=== PATIENT | male | born 1970 | race Caucasian/White ===

== ENCOUNTER 2018-12-09 17:37 | Inpatient (IN) | payer OTHER ==
[2018-12-09 19:14] VITALS: BMI 23.6
--- NOTE | 2018-12-09 21:39 | HP ---
CIWA Score Nausea/Vomitin-No Nausea/No Vomiting Muscle Tremors: 3 Anxiety: 3 Agitation: 3 Paroxysmal Sweats: 2 Orientation: 2-Disoriented Date<2 days Tacttile Disturbances: 2-Mild Itch/Numbness/Burn (both of feet numbness) Auditory Disturbances: 0-None Visual Disturbances: 0-None Headache: 0-None Present CIWA-Ar Total Score: 15 - Admission Criteria OASAS Guidelines: Admission for Medically Managed Detox: Requires at least one of the followin. CIWA greater than 12 2. Seizures within the past 24 hours 3. Delirium tremens within the past 24 hours 4. Hallucinations within the past 24 hours 5. Acute intervention needed for co occurring medical disorder 6. Acute intervention needed for co occurring psychiatric disorder 7. Severe withdrawal that cannot be handled at a lower level of care (continued vomiting, continued diarrhea, abnormal vital signs) requiring intravenous medication and/or fluids 8. Patient presents the following: CIWA greater than 12 Admission Criteria Met: Admission criteria met Admission ROS S - [facility] Chief Complaint: " alcohol detox, I shake when I don't drink very bad" Allergies/Adverse Reactions: Allergies Allergy/AdvReac Type Severity Reaction Status Date / Time No Known Allergies Allergy Verified 12/09/18 21:39 History of Present Illness: 48 yo male, homeless, nicotine and alcohol dependence is here seeking alcohol detox. Last detox October left AMA. LCS MMTP on methadone maintenance 120 mg, last medicated today, dose pending verification. Patient reports the medical conditions: seizure , depression, anxiety, bipolar, schizophrenia. Reports seizure four months ago when attempted detox. Denies suicidal / homicidal or hx of suicide attempts. Reports no significant period of sobriety. Exam Limitations: No Limitations - Ebola screening Have you traveled outside of the country in the last 21 days: No (N) Have you had contact with anyone from an Ebola affected area: No Have you been sick,other than usual withdrawal symptoms: No Do you have a fever: No - Review of Systems Constitutional: Diaphoresis, Changes in sleep, Other ("shakes") EENT: reports: No Symptoms Reported Respiratory: reports: No Symptoms reported Cardiac: reports: No Symptoms Reported GI: reports: Poor Fluid Intake, Indigestion : reports: Incontinence Musculoskeletal: reports: No Symptoms Reported Integumentary: reports: Dryness, Pruritus, Other (scar on forehead from old injury) Neuro: reports: See HPI, Numbness (both feet) Endocrine: reports: No Symptoms Reported, Increased Thirst Hematology: reports: No Symptoms Reported Psychiatric: reports: Orientated x3, Anxious Other Systems: Reviewed and Negative Patient History - Patient Medical History Hx Anemia: No Hx Asthma: No Hx Chronic Obstructive Pulmonary Disease (COPD): No Hx Cancer: No Hx Cardiac Disorders: No Hx Congestive Heart Failure: No Hx Hypertension: No Hx Hypercholesterolemia: No Hx Pacemaker: No HX Cerebrovascular Accident: No Hx Seizures: No Hx Dementia: No Hx Diabetes: No Hx Gastrointestinal Disorders: No Hx Liver Disease: Yes ("Enlarge Liver") Hx Genitourinary Disorders: No Hx Sexually Transmitted Disorders: No Hx Renal Disease (ESRD): No Hx Human Immunodeficiency Virus (HIV): No Hx Hepatitis C: No Hx Depression: Yes Hx Suicide Attempt: No Hx Bipolar Disorder: Yes Hx Schizophrenia: Yes Other Medical History: TBI - Patient Surgical History Past Surgical History: No - PPD History Previous Implant?: No Documented Results: Negative w/o proof PPD to be Administered?: Yes - Smoking Cessation Smoking history: Current every day smoker Have you smoked in the past 12 months: Yes Aproximately how many cigarettes per day: 20 Hx Chewing Tobacco Use: No Initiated information on smoking cessation: Yes 'Breaking Loose' booklet given: 12/09/18 - Substance & Tx. History Hx Alcohol Use: Yes Substance Use Type: Alcohol Hx Substance Use Treatment: Yes ([facility] [place] A[facility]. ) - Substances Abused alcohol Route: Oral Frequency: Daily Amount used: 4 - 5 pints Age of first use: 11 Date of Last Use: 12/09/18 Family Disease History - Family Disease History Family Disease History: CA: Father (Prostate CA), Other: Mother (alcoholism ) Admission Physical Exam [facility] - Vital Signs Vital Signs: Vital Signs - 24 hr 12/09/18 19:09 Temperature 98 F Pulse Rate 72 Respiratory 18 Rate Blood Pressure 118/76 - Physical General Appearance: Yes: Disheveled, Mild Distress, Alcohol on Breath, Sweating , Anxious HEENTM: Yes: EOMI, Hearing grossly Normal, Normal ENT Inspection, Normocephalic , Normal Voice, CASSIDY, Pharynx Normal, Tm's normal Respiratory: Yes: Within Normal Limits Neck: Yes: Within Normal Limits Breast: Yes: Breast Exam Deferred Cardiology: Yes: Regular Rhythm, Regular Rate Abdominal: Yes: Normal Bowel Sounds, Non Tender, Flat, Soft Genitourinary: Yes: Within Normal Limits Back: Yes: Normal Inspection Musculoskeletal: Yes: Within Normal Limits Extremities: Yes: Normal Capillary Refill, Normal Inspection, Normal Range of Motion Neurological: Yes: baseball 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 - Detox or Rehab [facility] Level of Care: Medically Managed (Detox: [facility]) [facility] Breath Alcohol Content Breath Alcohol Content: 0.041 Urine Drug Screen - Results Drug Screen Negative: No Urine Drug Screen Results: MTD-Methadone Inpatient Rehab Admission - Rehab Decision to Admit Inpatient rehab admission?: No
[2018-12-09] MEDS ORDERED: MAGNESIUM CITRATE 300 ML BOTTLE PO PRN (21:57)
[2018-12-09] MEDS ORDERED: METHOCARBAMOL 500 MG TABLET PO PRN (21:57)
[2018-12-09] MEDS ORDERED: NICOTINE POLACRILEX 4 MG GUM BUC PRN (21:57)
[2018-12-09] MEDS ORDERED: hydrOXYzine PAMOATE 25 MG CAPSULE (FP) PO PRN (21:57)
[2018-12-09] MEDS ORDERED: ACETAMINOPHEN 325 MG TABLET (FP) PO PRN ×2 (21:57)
[2018-12-09] MEDS ORDERED: IBUPROFEN 400 MG TABLET (FP) PO PRN (21:57)
[2018-12-09] MEDS ORDERED: MELATONIN 5 MG TABLETS PO PRN (21:57)
[2018-12-09] MEDS ORDERED: BISMUTH SUBSALICYLATE 524 MG/30 ML UD PO PRN (21:57)
[2018-12-09] MEDS ORDERED: MAG HYDROX/AL HYDROX/SIMETH 30 ML UNIT-DOSE CUP PO PRN (21:57)
[2018-12-09] MEDS ORDERED: MAGNESIUM HYDROX 2400MG/30ML ORAL SUSPENSION 30 ML CUP PO PRN (21:57)
[2018-12-10] MEDS: LORazepam 1 MG TABLET PO PRN ×2 (01:29→08:24)
[2018-12-10] MEDS: LORazepam 2 MG TABLET PO SCH ×4 (01:34→17:39)
[2018-12-10] MEDS: THIAMINE HCL 100 MG TABLET (FP) PO SCH ×2 (01:34→22:12)
[2018-12-10] MEDS: NICOTINE 21 MG/24 HOURS TOPICAL PATCH TD SCH (10:11)
[2018-12-10] MEDS: PRENATAL VITAMINS W/ FOLIC ACID TABLET (FP) PO SCH (10:11)
[2018-12-10] MEDS ORDERED: METHADONE HCL 40 MG DISPERSABLE TABLET PO ONE (10:44)
[2018-12-10 11:29] LABS: HEMATOCRIT 39.2 % (35.4-49); HEMOGLOBIN 13.5 GM/dL (11.7-16.9); MCH 33.6 pg (25.7-33.7); MCHC 34.5 g/dl (32.0-35.9); MEAN CELL VOLUME 97.6 fl (80-96); MEAN PLT VOLUME 7.8 fl (7.5-11.1); PLATELET COUNT 197 K/MM3 (134-434); RBC 4.02 M/mm3 (4.00-5.60); RDW 15.1 % (11.9-15.9); WHITE BLOOD COUNT 4.1 K/mm3 (4.0-10.0)
[2018-12-10 11:30] LABS: URINE APPEARANCE CLEAR; URINE BILIRUBIN NEGATIVE (<2.0 mg/dL); URINE COLOR YELLOW; URINE GLUCOSE (UA) NEGATIVE (NEGATIVE); URINE KETONE NEGATIVE (NEGATIVE); URINE LEUK ESTERASE NEGATIVE (NEGATIVE); URINE NITRITE NEGATIVE (NEGATIVE); URINE PROTEIN NEGATIVE (NEGATIVE); URINE UROBILINOGEN 4.0 E.U/dl mg/dL (0.2-1.0)
[2018-12-10 11:37] LABS: ALBUMIN 3.1 g/dl (3.4-5.0); ALK PHOS 112 U/L (45-117); ANION GAP 5 MMOL/L (8-16); BILIRUBIN,TOTAL 0.3 mg/dL (0.2-1); BLOOD UREA NITROGEN 17 mg/dL (7-18); CALCIUM 8.3 mg/dL (8.5-10.1); CHLORIDE 105 mmol/L (98-107); CO2 30 mmol/L (21-32); CREATININE 0.9 mg/dL (0.55-1.3); GLUCOSE,RANDOM 95 mg/dL (74-106); POTASSIUM 3.8 mmol/L (3.5-5.1); SGOT/AST 21 U/L (15-37); SGPT/ALT 18 U/L (13-61); SODIUM 140 mmol/L (136-145); TOT PROT 6.7 g/dl (6.4-8.2)
[2018-12-10] MEDS ORDERED: PNEUMOC 13-VAL CONJ-DIP CRM/PF 0.5 ML DISP.SYRIN IM ONE (12:00)
[2018-12-10] MEDS ORDERED: PNEUMOCOCCAL 23 VACCINE 0.5 ML VIAL IM ONE (12:00)
--- NOTE | 2018-12-10 13:27 | PN ---
[facility] CIWA - CIWA Score Nausea/Vomitin-No Nausea/No Vomiting Muscle Tremors: 2 Anxiety: 2 Agitation: 3 Paroxysmal Sweats: 1-Minimal Palms Moist Orientation: 2-Disoriented Date<2 days Tacttile Disturbances: 0-None Auditory Disturbances: 0-None Visual Disturbances: 0-None Headache: 1-Very Mild CIWA-Ar Total Score: 11 S Progress Note (SOAP) Subjective: tremor sweating hesitate to talk about alcohol misuse had one dose methadone 120 mg reporting feeling better Objective: 12/10/18 13:26 Vital Signs Temperature 97.2 F L 12/10/18 09:18 Pulse Rate 73 12/10/18 09:18 Respiratory Rate 18 12/10/18 09:18 Blood Pressure 135/77 12/10/18 09:18 O2 Sat by Pulse Oximetry (%) Laboratory Last Values WBC 4.1 K/mm3 (4.0-10.0) 12/10/18 07:30 RBC 4.02 M/mm3 (4.00-5.60) 12/10/18 07:30 Hgb 13.5 GM/dL (11.7-16.9) 12/10/18 07:30 Hct 39.2 % (35.4-49) 12/10/18 07:30 MCV 97.6 fl (80-96) H 12/10/18 07:30 MCH 33.6 pg (25.7-33.7) 12/10/18 07:30 MCHC 34.5 g/dl (32.0-35.9) 12/10/18 07:30 RDW 15.1 % (11.9-15.9) 12/10/18 07:30 Plt Count 197 K/MM3 (134-434) 12/10/18 07:30 MPV 7.8 fl (7.5-11.1) 12/10/18 07:30 Sodium 140 mmol/L (136-145) 12/10/18 07:30 Potassium 3.8 mmol/L (3.5-5.1) 12/10/18 07:30 Chloride 105 mmol/L (98-107) 12/10/18 07:30 Carbon Dioxide 30 mmol/L (21-32) 12/10/18 07:30 Anion Gap 5 MMOL/L (8-16) L 12/10/18 07:30 BUN 17 mg/dL (7-18) 12/10/18 07:30 Creatinine 0.9 mg/dL (0.55-1.3) 12/10/18 07:30 Creat Clearance w eGFR 90.45 (>60) 12/10/18 07:30 Random Glucose 95 mg/dL (74-106) 12/10/18 07:30 Calcium 8.3 mg/dL (8.5-10.1) L 12/10/18 07:30 Total Bilirubin 0.3 mg/dL (0.2-1) 12/10/18 07:30 AST 21 U/L (15-37) 12/10/18 07:30 ALT 18 U/L (13-61) 12/10/18 07:30 Alkaline Phosphatase 112 U/L (45-117) 12/10/18 07:30 Total Protein 6.7 g/dl (6.4-8.2) 12/10/18 07:30 Albumin 3.1 g/dl (3.4-5.0) L 12/10/18 07:30 Urine Color Yellow 12/10/18 10:20 Urine Appearance Clear 12/10/18 10:20 Urine pH 6.0 (5.0-8.0) 12/10/18 10:20 Ur Specific [place] 1.021 (1.010-1.035) 12/10/18 10:20 Urine Protein Negative (NEGATIVE) 12/10/18 10:20 Urine Glucose (UA) Negative (NEGATIVE) 12/10/18 10:20 Urine Ketones Negative (NEGATIVE) 12/10/18 10:20 Urine Blood Negative (NEGATIVE) 12/10/18 10:20 Urine Nitrite Negative (NEGATIVE) 12/10/18 10:20 Urine Bilirubin Negative (<2.0 mg/dL) 12/10/18 10:20 Urine Urobilinogen 4.0 e.u/dl mg/dL (0.2-1.0) 12/10/18 10:20 Ur Leukocyte Esterase Negative (NEGATIVE) 12/10/18 10:20 RPR Titer Nonreactive (NONREACTIVE) 12/10/18 07:30 lab noted Assessment: 12/10/18 13:26 withdrawal sx Plan: continue detox
--- NOTE | 2018-12-10 13:38 | CONSULT ---
[facility] Psychiatric Consult - Data Date of interview: 12/10/18 Admission source: [facility] Identifying data: First admission to [facility] for this 48 y/o [place] male self-referred for detoxification (heroin, alcohol, cannabis). Interviewed on . Patient is , a father of 12, homeless, unemployed and supported on food stamps. Substance Abuse History: Substance abuse confirmed by the patient in this interview. Kalyn patterson [facility] report for details : Smoking history: Current every day smoker. Have you smoked in the past 12 months: Yes. Aproximately how many cigarettes per day: 20. Hx Chewing Tobacco Use: No. Initiated information on smoking cessation: Yes. 'Breaking Loose' booklet given: . - Substance & Tx. History. Hx Alcohol Use: Yes. Substance Use Type: Alcohol. Hx Substance Use Treatment: Yes (ast detox [place]. ) . - Substances Abused. alcohol. Route: Oral. Frequency: Daily. Amount used: 4 - 5 pints. Age of first use: 11. Date of Last Use: 12/09/18 Medical History: Diabetes mellitus. Psychiatric History: Patient endorses a history of multiple psychiatric hospitalizations (names of institutions not recalled). Reportedly diagnosed with "" Bipolar Disorder and Schizophrenia ". Mr Kitchen states that he used to be prescribed psychotropic medications. No able to recall the names of the formulations. " I used to get them when I was in snf. I stoppped taking them since I got released last year on 06/10/18 after 10 years ". 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 No psychiatric [facility] care prior to this [facility] visit. Patient denies history of suicide attempts. Reports current methadone maintenance (120 mg/day) at the [facility] program in [facility]. Physical/Sexual Abuse/Trauma History: Trauma : 10 consecutive years in snf. Additional Comment: Urine Drug Screen Results: MTD-Methadone. Noted. Mental Status Exam - Mental Status Exam Alert and Oriented to: Time, Place, Person Cognitive Function: Grossly Intact Patient Appearance: Well Groomed (short stature) Mood: Nervous, Withdrawn Affect: Mood Congruent, Constricted Patient Behavior: Fatigued, Cooperative Speech Pattern: Delayed, Slurred Voice Loudness: Normal Thought Process: Goal Oriented Thought Disorder: Not Present Hallucinations: Denies Suicidal Ideation: Denies Homicidal Ideation: Denies Insight/Judgement: Poor Sleep: Well Appetite: Good Muscle strength/Tone: Normal Gait/Station: Normal Psychiatric Findings - Problem List ([place] 1, 2,3) (1) Alcohol dependence with uncomplicated withdrawal Current Visit: Yes Status: Acute (2) Opioid dependence on agonist therapy Current Visit: Yes Status: Chronic Comment: on MMTP 120 mg qd, dose pending verification (3) Substance induced mood disorder Current Visit: Yes Status: Chronic (4) History of bipolar disorder Current Visit: Yes Status: Chronic (5) Non-compliance Current Visit: Yes Status: Chronic - Initial Treatment Plan Initial Treatment Plan: Psychoeducation. Sleep hygiene. Detoxification. Support. AA/NA meetings. Observation.
[2018-12-10] MEDS: LORazepam 1 MG TABLET PO SCH (22:12)
[2018-12-11] MEDS: LORazepam 1 MG TABLET PO SCH ×3 (05:55→18:31)
[2018-12-11] MEDS: METHADONE HCL 40 MG DISPERSABLE TABLET PO SCH (05:55)
[2018-12-11] MEDS: LORazepam 1 MG TABLET PO PRN (08:27)
[2018-12-11] MEDS: NICOTINE 21 MG/24 HOURS TOPICAL PATCH TD SCH (10:23)
[2018-12-11] MEDS: PRENATAL VITAMINS W/ FOLIC ACID TABLET (FP) PO SCH (10:24)
--- NOTE | 2018-12-11 10:31 | PN ---
[facility] CIWA - CIWA Score Nausea/Vomitin-No Nausea/No Vomiting Muscle Tremors: 2 Anxiety: 1-Mildly Anxious Agitation: 1-Slight > Activity Paroxysmal Sweats: 1-Minimal Palms Moist Orientation: 1-Uncertain about Date Tacttile Disturbances: 0-None Auditory Disturbances: 0-None Visual Disturbances: 0-None Headache: 1-Very Mild CIWA-Ar Total Score: 7 S Progress Note (SOAP) Subjective: feeling better discuss aftercare with staff social with peers in day room well-rested Objective: 12/11/18 10:32 Vital Signs Temperature 96.0 F L 12/11/18 10:09 Pulse Rate 81 12/11/18 10:09 Respiratory Rate 20 12/11/18 10:09 Blood Pressure 123/77 12/11/18 10:09 O2 Sat by Pulse Oximetry (%) Laboratory Last Values WBC 4.1 K/mm3 (4.0-10.0) 12/10/18 07:30 RBC 4.02 M/mm3 (4.00-5.60) 12/10/18 07:30 Hgb 13.5 GM/dL (11.7-16.9) 12/10/18 07:30 Hct 39.2 % (35.4-49) 12/10/18 07:30 MCV 97.6 fl (80-96) H 12/10/18 07:30 MCH 33.6 pg (25.7-33.7) 12/10/18 07:30 MCHC 34.5 g/dl (32.0-35.9) 12/10/18 07:30 RDW 15.1 % (11.9-15.9) 12/10/18 07:30 Plt Count 197 K/MM3 (134-434) 12/10/18 07:30 MPV 7.8 fl (7.5-11.1) 12/10/18 07:30 Sodium 140 mmol/L (136-145) 12/10/18 07:30 Potassium 3.8 mmol/L (3.5-5.1) 12/10/18 07:30 Chloride 105 mmol/L (98-107) 12/10/18 07:30 Carbon Dioxide 30 mmol/L (21-32) 12/10/18 07:30 Anion Gap 5 MMOL/L (8-16) L 12/10/18 07:30 BUN 17 mg/dL (7-18) 12/10/18 07:30 Creatinine 0.9 mg/dL (0.55-1.3) 12/10/18 07:30 Creat Clearance w eGFR 90.45 (>60) 12/10/18 07:30 Random Glucose 95 mg/dL (74-106) 12/10/18 07:30 Calcium 8.3 mg/dL (8.5-10.1) L 12/10/18 07:30 Total Bilirubin 0.3 mg/dL (0.2-1) 12/10/18 07:30 AST 21 U/L (15-37) 12/10/18 07:30 ALT 18 U/L (13-61) 12/10/18 07:30 Alkaline Phosphatase 112 U/L (45-117) 12/10/18 07:30 Total Protein 6.7 g/dl (6.4-8.2) 12/10/18 07:30 Albumin 3.1 g/dl (3.4-5.0) L 12/10/18 07:30 Urine Color Yellow 12/10/18 10:20 Urine Appearance Clear 12/10/18 10:20 Urine pH 6.0 (5.0-8.0) 12/10/18 10:20 Ur Specific [place] 1.021 (1.010-1.035) 12/10/18 10:20 Urine Protein Negative (NEGATIVE) 12/10/18 10:20 Urine Glucose (UA) Negative (NEGATIVE) 12/10/18 10:20 Urine Ketones Negative (NEGATIVE) 12/10/18 10:20 Urine Blood Negative (NEGATIVE) 12/10/18 10:20 Urine Nitrite Negative (NEGATIVE) 12/10/18 10:20 Urine Bilirubin Negative (<2.0 mg/dL) 12/10/18 10:20 Urine Urobilinogen 4.0 e.u/dl mg/dL (0.2-1.0) 12/10/18 10:20 Ur Leukocyte Esterase Negative (NEGATIVE) 12/10/18 10:20 RPR Titer Nonreactive (NONREACTIVE) 12/10/18 07:30 lab noted Assessment: 12/11/18 10:33 mild alcohol withdrawal sx Plan: continue detox
[2018-12-11] MEDS: MENTHOL/PHENOL 1 EACH UD MM PRN ×2 (13:22→18:39)
[2018-12-11] MEDS: THIAMINE HCL 100 MG TABLET (FP) PO SCH (22:24)
[2018-12-11] MEDS: LORazepam 0.5 MG TABLET PO SCH (22:25)
[2018-12-11] MEDS ORDERED: LORazepam 0.5 MG TABLET PO PRN (23:00)
[2018-12-12] MEDS: METHADONE HCL 40 MG DISPERSABLE TABLET PO SCH (05:16)
[2018-12-12] MEDS: LORazepam 0.5 MG TABLET PO SCH ×2 (05:17→10:12)
--- NOTE | 2018-12-12 09:05 | DS ---
[facility] Detox Discharge Summary Admission Date: 12/10/18 Discharge Date: 12/12/18 - History Present History: Alcohol Dependence Additional Comments: 48 years old male admitted on 12/09/18 for alcohol withdrawal stabilization completed detox regimen [facility] - Physical Exam Results Vital Signs: Vital Signs Temperature 98.2 F 12/12/18 06:08 Pulse Rate 74 12/12/18 06:08 Respiratory Rate 16 12/12/18 06:08 Blood Pressure 130/75 12/12/18 06:08 O2 Sat by Pulse Oximetry (%) Pertinent Admission Physical Exam Findings: alcohol withdrawal sx Laboratory Last Values WBC 4.1 K/mm3 (4.0-10.0) 12/10/18 07:30 RBC 4.02 M/mm3 (4.00-5.60) 12/10/18 07:30 Hgb 13.5 GM/dL (11.7-16.9) 12/10/18 07:30 Hct 39.2 % (35.4-49) 12/10/18 07:30 MCV 97.6 fl (80-96) H 12/10/18 07:30 MCH 33.6 pg (25.7-33.7) 12/10/18 07:30 MCHC 34.5 g/dl (32.0-35.9) 12/10/18 07:30 RDW 15.1 % (11.9-15.9) 12/10/18 07:30 Plt Count 197 K/MM3 (134-434) 12/10/18 07:30 MPV 7.8 fl (7.5-11.1) 12/10/18 07:30 Sodium 140 mmol/L (136-145) 12/10/18 07:30 Potassium 3.8 mmol/L (3.5-5.1) 12/10/18 07:30 Chloride 105 mmol/L (98-107) 12/10/18 07:30 Carbon Dioxide 30 mmol/L (21-32) 12/10/18 07:30 Anion Gap 5 MMOL/L (8-16) L 12/10/18 07:30 BUN 17 mg/dL (7-18) 12/10/18 07:30 Creatinine 0.9 mg/dL (0.55-1.3) 12/10/18 07:30 Creat Clearance w eGFR 90.45 (>60) 12/10/18 07:30 Random Glucose 95 mg/dL (74-106) 12/10/18 07:30 Calcium 8.3 mg/dL (8.5-10.1) L 12/10/18 07:30 Total Bilirubin 0.3 mg/dL (0.2-1) 12/10/18 07:30 AST 21 U/L (15-37) 12/10/18 07:30 ALT 18 U/L (13-61) 12/10/18 07:30 Alkaline Phosphatase 112 U/L (45-117) 12/10/18 07:30 Total Protein 6.7 g/dl (6.4-8.2) 12/10/18 07:30 Albumin 3.1 g/dl (3.4-5.0) L 12/10/18 07:30 Urine Color Yellow 12/10/18 10:20 Urine Appearance Clear 12/10/18 10:20 Urine pH 6.0 (5.0-8.0) 12/10/18 10:20 Ur Specific [place] 1.021 (1.010-1.035) 12/10/18 10:20 Urine Protein Negative (NEGATIVE) 12/10/18 10:20 Urine Glucose (UA) Negative (NEGATIVE) 12/10/18 10:20 Urine Ketones Negative (NEGATIVE) 12/10/18 10:20 Urine Blood Negative (NEGATIVE) 12/10/18 10:20 Urine Nitrite Negative (NEGATIVE) 12/10/18 10:20 Urine Bilirubin Negative (<2.0 mg/dL) 12/10/18 10:20 Urine Urobilinogen 4.0 e.u/dl mg/dL (0.2-1.0) 12/10/18 10:20 Ur Leukocyte Esterase Negative (NEGATIVE) 12/10/18 10:20 RPR Titer Nonreactive (NONREACTIVE) 12/10/18 07:30 lab noted - Treatment Hospital Course: Detox Protocol Followed, Detoxed Safely, Responded well, Discharged Condition Good, Rehab Referral Accepted Patient has Accepted a [facility] Referral to: [facility] - Medication Discharge Medications: Ambulatory Orders NK [No Known Home Medication] 12/09/18 - Diagnosis (1) Alcohol dependence with uncomplicated withdrawal Current Visit: Yes Status: Acute (2) Substance induced mood disorder Current Visit: Yes Status: Suspected (3) Opioid dependence on agonist therapy Current Visit: Yes Status: Chronic - AMA Did Patient Leave Against Medical Advice: No
[2018-12-12] MEDS: NICOTINE 21 MG/24 HOURS TOPICAL PATCH TD SCH (09:15)
[2018-12-12] MEDS: PRENATAL VITAMINS W/ FOLIC ACID TABLET (FP) PO SCH (09:15)
[2018-12-12 10:05] VITALS: BP 131/82; PULSE 85; TEMP 97.5
--- NOTE | 2018-12-12 11:03 | EKG ---
Test Reason : Blood Pressure : / mmHG Vent. Rate : 065 BPM Atrial Rate : 065 BPM P-R Int : 126 ms QRS Dur : 106 ms QT Int : 438 ms P-R-T Axes : 066 072 051 degrees QTc Int : 455 ms NORMAL SINUS RHYTHM INCOMPLETE RIGHT BUNDLE BRANCH BLOCK BORDERLINE ECG NO PREVIOUS ECGS AVAILABLE Confirmed by GUSTABO ANDRADE, GERARD ([id number]) on 12/12/2018 11:02:54 AM Referred By: Confirmed By:GERARD MONTEJO MD
== END 2018-12-12 12:32 | disposition home or self-care (01) | DRG 773 ==
LOC: YASAS 17:37 → Y3N 12-10 00:16
PROVIDERS: ADMIT Surgery; ATTEND Surgery
PROC: HZ2ZZZZ Detoxification Services for Substance Abuse Treatment (ICD-10-PCS; principal; 2018-12-10)
DX: F10.230 Alcohol dependence with withdrawal, uncomplicated (principal); F11.20 Opioid dependence, uncomplicated; F17.210 Nicotine dependence, cigarettes, uncomplicated; F20.9 Schizophrenia, unspecified; F19.24 Other psychoactive substance dependence with psychoactive substance-induced mood disorder; F99 Mental disorder, not otherwise specified; Z86.69 Personal history of other diseases of the nervous system and sense organs; Z86.59 Personal history of other mental and behavioral disorders; Z87.820 Personal history of traumatic brain injury; Z91.19 Patient's noncompliance with other medical treatment and regimen
CPT/HCPCS: 36415; 80053; 81003; 85027; 86593; 93005; 93010

== ENCOUNTER 2018-12-13 08:01 | Inpatient (IN) | payer OTHER ==
[2018-12-13 08:47] VITALS: BMI 24.0
[2018-12-13] MEDS ORDERED: MAGNESIUM HYDROX 2400MG/30ML ORAL SUSPENSION 30 ML CUP PO PRN (11:09)
[2018-12-13] MEDS ORDERED: MAG HYDROX/AL HYDROX/SIMETH 30 ML UNIT-DOSE CUP PO PRN (11:09)
[2018-12-13] MEDS ORDERED: ACETAMINOPHEN 325 MG TABLET (FP) PO PRN (11:09)
[2018-12-13] MEDS ORDERED: P-EPHED 60MG/TRIPROLIDI 2.5MG TABLET PO PRN (11:09)
[2018-12-13] MEDS ORDERED: IBUPROFEN 400 MG TABLET (FP) PO PRN (11:09)
[2018-12-13] MEDS ORDERED: MENTHOL/PHENOL 1 EACH UD MM PRN (11:09)
[2018-12-13] MEDS ORDERED: MAGNESIUM CITRATE 300 ML BOTTLE PO PRN (11:09)
[2018-12-13] MEDS ORDERED: guaiFENesin 200 MG/10 ML 10 ML UNIT-DOSE CUPS PO PRN (11:09)
[2018-12-13] MEDS ORDERED: NICOTINE POLACRILEX 2 MG GUM BC PRN (11:09)
--- NOTE | 2018-12-13 11:09 | HP ---
CIWA Score - Admission Criteria OASAS Guidelines: Admission for Medically Managed Detox: Requires at least one of the followin. CIWA greater than 12 2. Seizures within the past 24 hours 3. Delirium tremens within the past 24 hours 4. Hallucinations within the past 24 hours 5. Acute intervention needed for co occurring medical disorder 6. Acute intervention needed for co occurring psychiatric disorder 7. Severe withdrawal that cannot be handled at a lower level of care (continued vomiting, continued diarrhea, abnormal vital signs) requiring intravenous medication and/or fluids 8. Admission ROS S - HPI Allergies/Adverse Reactions: Allergies Allergy/AdvReac Type Severity Reaction Status Date / Time No Known Allergies Allergy Verified 12/13/18 11:37 History of Present Illness: pt here rquesting rehab from etoh use , completed detox yesterday . tobacco : 1.5 ppd MMTP : 120 mg x almost a year PMHX : denies PSHX : denies Psych :bipolar d/o , SAD , stopped taking meds upon release from incarceration 2016 . Denies current SI / HI . SHx : homeless . Exam Limitations: No Limitations - Ebola screening Have you traveled outside of the country in the last 21 days: No Have you had contact with anyone from an Ebola affected area: No Have you been sick,other than usual withdrawal symptoms: No Do you have a fever: No - Review of Systems Constitutional: No Symptoms Reported EENT: reports: No Symptoms Reported Respiratory: reports: No Symptoms reported Cardiac: reports: No Symptoms Reported GI: reports: No Symptoms Reported : reports: No Symptoms Reported Musculoskeletal: reports: No Symptoms Reported Integumentary: reports: No Symptoms Reported Neuro: reports: No Symptoms reported Endocrine: reports: No Symptoms Reported Psychiatric: reports: Orientated x3 Patient History - Patient Medical History Hx Anemia: No Hx Asthma: No Hx Chronic Obstructive Pulmonary Disease (COPD): No Hx Cancer: No Hx Cardiac Disorders: No Hx Congestive Heart Failure: No Hx Hypertension: No Hx Hypercholesterolemia: No Hx Pacemaker: No HX Cerebrovascular Accident: No Hx Seizures: Yes (4-5 months ago) Hx Dementia: No Hx Diabetes: No Hx Gastrointestinal Disorders: No Hx Liver Disease: Yes ("Enlarge Liver") Hx Genitourinary Disorders: No Hx Sexually Transmitted Disorders: No Hx Renal Disease (ESRD): No Hx Human Immunodeficiency Virus (HIV): No Hx Hepatitis C: No Hx Depression: Yes Hx Suicide Attempt: No Hx Bipolar Disorder: Yes Hx Schizophrenia: Yes - Patient Surgical History Past Surgical History: No Hx Neurologic Surgery: No Hx Cataract Extraction: No Hx Cardiac Surgery: No Hx Lung Surgery: No Hx Breast Surgery: No Hx Breast Biopsy: No Hx Abdominal Surgery: No Hx Appendectomy: No Hx Cholecystectomy: No Hx Genitourinary Surgery: No Hx Orthopedic Surgery: No Anesthesia Reaction: No - PPD History Date: 12/12/18 - Smoking Cessation Smoking history: Current every day smoker Have you smoked in the past 12 months: Yes Aproximately how many cigarettes per day: 20 Hx Chewing Tobacco Use: No Initiated information on smoking cessation: No - Substances Abused Alcohol Route: Oral Frequency: Daily Amount used: 4 pinst vodka Age of first use: 15 Date of Last Use: 12/10/18 Cocaine Route: Inhalation Frequency: Daily Amount used: 1 and 1/2 grams Age of first use: 14 Date of Last Use: 12/10/18 Family Disease History - Family Disease History Family Disease History: CA: Father (Prostate CA), Other: Mother (alcoholism ) Admission Physical Exam [facility] - Vital Signs Vital Signs: Vital Signs - 24 hr 12/13/18 08:44 Temperature 97.4 F L Pulse Rate 68 Respiratory 18 Rate Blood Pressure 124/76 - Physical General Appearance: Yes: No Apparent Distress HEENTM: Yes: EOMI, Hearing grossly Normal, Normocephalic, Normal Voice Respiratory: Yes: Chest Non-Tender, Lungs Clear, Normal Breath Sounds Neck: Yes: No masses,lesions,Nodules, Trachea in good position Cardiology: Yes: Regular Rhythm, Regular Rate, S1, S2 Abdominal: Yes: Normal Bowel Sounds, Non Tender, Soft Back: Yes: Normal Inspection Musculoskeletal: Yes: Gait Steady Extremities: Yes: Non-Tender Neurological: Yes: Motor Strength 5/5 Integumentary: Yes: Normal Color - Diagnostic (1) Alcohol dependence in early full remission Current Visit: Yes Status: Acute (2) Opioid dependence on agonist therapy Current Visit: Yes Status: Chronic Comment: on MMTP 120 mg qd, dose pending verification [facility] Breath Alcohol Content Breath Alcohol Content: 0 Urine Drug Screen - Results Drug Screen Negative: No Urine Drug Screen Results: BZO-Benzodiazepines, MTD-Methadone Inpatient Rehab Admission - Rehab Decision to Admit Inpatient rehab admission?: Yes - Initial Determination Are CD services needed?: Yes Free of communicable disease: Yes Not in need of hospitalization: Yes - Rehab Admission Criteria Previous failed treatment: Yes Poor recovery environment: Yes Comorbidities: No Lacks judgement: Yes Patient is meeting Inpatient Rehab admission criteria:: Yes (d/c from detox 12/12 )
[2018-12-13] MEDS ORDERED: METHADONE HCL 40 MG DISPERSABLE TABLET PO ONE (13:30)
[2018-12-13] MEDS: THIAMINE HCL 100 MG TABLET (FP) PO SCH (21:33)
[2018-12-13] MEDS: MELATONIN 5 MG TABLETS PO PRN (21:34)
[2018-12-14] MEDS: METHADONE HCL 40 MG DISPERSABLE TABLET PO SCH (06:11)
[2018-12-14] MEDS: PRENATAL VITAMINS W/ FOLIC ACID TABLET (FP) PO SCH (10:05)
[2018-12-14] MEDS: NICOTINE 7 MG/24 HOURS TOPICAL PATCH TD SCH (10:05)
[2018-12-14] MEDS: MELATONIN 5 MG TABLETS PO PRN (21:17)
[2018-12-14] MEDS: THIAMINE HCL 100 MG TABLET (FP) PO SCH (21:17)
[2018-12-15 00:46] LABS: PH,URINE 7.5 (5.0-8.0); URINE APPEARANCE CLEAR; URINE BILIRUBIN NEGATIVE (<2.0 mg/dL); URINE COLOR YELLOW; URINE GLUCOSE (UA) NEGATIVE (NEGATIVE); URINE KETONE NEGATIVE (NEGATIVE); URINE LEUK ESTERASE NEGATIVE (NEGATIVE); URINE NITRITE NEGATIVE (NEGATIVE); URINE PROTEIN NEGATIVE (NEGATIVE); URINE UROBILINOGEN 0.2 mg/dL (0.2-1.0)
[2018-12-15] MEDS: METHADONE HCL 40 MG DISPERSABLE TABLET PO SCH (06:16)
[2018-12-15 06:35] VITALS: BP 128/71; PULSE 60; TEMP 98.1
[2018-12-15] MEDS: NICOTINE 7 MG/24 HOURS TOPICAL PATCH TD SCH (09:58)
[2018-12-15] MEDS: PRENATAL VITAMINS W/ FOLIC ACID TABLET (FP) PO SCH (09:58)
[2018-12-15] MEDS ORDERED: LOPERAMIDE HCL 2 MG CAPSULE PO PRN (15:50)
[2018-12-15] MEDS ORDERED: NICOTINE 14 MG/24 HOURS TOPICAL PATCH TD SCH (15:51)
--- NOTE | 2018-12-15 17:28 | PN ---
S Progress Note Note: DISCHARGE: Patient left AMA. Did not wait to see provider. Nurses state patient left alert/ oriented/ w/ steady gait. Vital Signs - 24 hr 12/15/18 12/15/18 12/15/18 00:30 03:30 06:34 Temperature 98.1 F Pulse Rate 60 Respiratory 18 18 16 Rate Blood Pressure 128/71 Patient was in early alcohol remission. [facility]
== END 2018-12-15 17:20 | disposition left against medical advice (07) | DRG 770 ==
LOC: YASAS 08:01 → Y3W 11:41
PROVIDERS: ADMIT Surgery; ATTEND Surgery
PROC: HZ42ZZZ Group Counseling for Substance Abuse Treatment, Cognitive-Behavioral (ICD-10-PCS; principal; 2018-12-13)
DX: F10.20 Alcohol dependence, uncomplicated (principal); F11.20 Opioid dependence, uncomplicated; F17.210 Nicotine dependence, cigarettes, uncomplicated; F20.9 Schizophrenia, unspecified; F32.9 Major depressive disorder, single episode, unspecified; Z86.69 Personal history of other diseases of the nervous system and sense organs
CPT/HCPCS: 81003